=== PATIENT | female | born 1945 | race Two or more races ===

== ENCOUNTER 2017-10-25 06:04 | Day surgery (SDC) | payer MEDICARE, MEDICAID ==
[2017-10-19 14:00] LABS: BASOPHILS % (AUTO) 1.3 % (0.0-2.0); EOSINOPHILS % (AUTO) 2.8 % (0.0-3.0); HEMATOCRIT 40.3 % (37.0-47.0); HEMOGLOBIN 13.3 G/DL (12.0-16.0); LYMPHOCYTES % (AUTO) 42.4 % (20.0-45.0); MEAN CORPUSCULAR VOLUME 95 FL (80-99); MONOCYTES % (AUTO) 8.6 % (1.0-10.0); NEUTROPHILS % (AUTO) 44.9 % (45.0-75.0); PLATELET COUNT 267 K/UL (150-450); RED BLOOD COUNT 4.26 M/UL (4.20-5.40); RED CELL DISTRIBUTION WIDTH 12.4 % (11.6-14.8)
[2017-10-19 14:27] LABS: ANION GAP 11 mmol/L (5-15); BLOOD UREA NITROGEN 16 mg/dL (7-18); CALCIUM 9.1 MG/DL (8.5-10.1); CARBON DIOXIDE 25 MMOL/L (21-32); CHLORIDE 108 MMOL/L (98-107); POTASSIUM 4.1 MMOL/L (3.5-5.1); SODIUM 144 MMOL/L (136-145)
--- NOTE | 2017-10-20 18:01 | Cardiology Report ---
APPROVED REPORT EKG Measurement Heart [id number] ND [id number] Normal sinus rhythm Right superior axis deviation Pulmonary disease pattern Abnormal ECG
--- NOTE | 2017-10-21 14:32 | Pre-Procedure Note/Attestation ---
Pre-Procedure Note/Attestation Complete Prior to Procedure Planned Procedure: left Procedure Narrative: phaco with IOL Indications for Procedure Pre-Operative Diagnosis: cataract Attestation I attest that I discussed the nature of the procedure; its benefits; risks and complications; and alternatives (and the risks and benefits of such alternatives ), prior to the procedure, with the patient (or the patient's legal small business sales representative). I attest that, if there was a reasonable possibility of needing a blood transfusion, the patient (or the patient's legal small business sales representative) was given the [facility] standardized written summary, pursuant to the [place] Blood Safety Act ([place] Health and Safety Code # 1645, as amended). I attest that I re-evaluated the patient just prior to the surgery and that there has been no change in the patient's H&P, except as documented below: JHOANA ARAUZ Oct 21, 2017 14:32
--- NOTE | 2017-10-22 10:32 | Opthalmology H&P ---
Ophthalmology H&P H&P Chief Complaint: decreased vision in left eye HPI Vision Affects Ability to: read, focus/use eyes together, manage personal affairs HPI Narrative blurry vision Exam Visual Acuity: OD: 20/50 OS: 20/200 Tension: OD: 12 OS: 13 Eye Exam: normal OU: external exam, palpebral fissure-width, marginal reflex distance, levator function, corneas, anterior chambers, fundus exam - OD: ns OS: ns; findings: lens Assessment/Plan Diagnosis: (1) Nuclear age-related cataract, left eye Treatment Plan: cataract extraction w/ lens implant Goals of Treatment: improvement of vision, enhance quality of life Attestation Attestation The risks and benefits of the surgery as well as alternative procedures were explained to the patient in detail. JHOANA ARAUZ Oct 22, 2017 10:32
[~2017-10-25] VITALS: Ht 157.5 cm; Wt 64.4 kg
[2017-10-25] VITALS (8 sets, daily range): BP systolic 138–158; BP diastolic 64–77
[~2017-10-25 06:04] MED LIST: GABAPENTIN300 MG ORAL; INDERAL LA60 MG ORAL; JANUMET XR 50-1 EAC1 ORAL; LOSARTAN POTASS25 MG ORAL; SIMVASTATIN20 MG ORAL; TOPIRAMATE100 MG ORAL
[2017-10-25] MEDS ORDERED: Pilocarpine 2% Opth 15ml Soln ONE (07:00)
[2017-10-25] MEDS ORDERED: Pred Forte 1% Opth Susp 1ml ONE (07:00)
[2017-10-25] MEDS ORDERED: Maxitrol Opth Oint 3.5gm ONE (07:00)
[2017-10-25] MEDS ORDERED: Tobramycin Op Soln 0.3% 5ml LEFT EYE SCH (07:00)
[2017-10-25] MEDS ORDERED: Proparacaine 0.5% Opth Soln 15ml LEFT EYE ONE (07:00)
[2017-10-25] MEDS ORDERED: Dexamethasone 4mg/ml vial ONE (07:00)
[2017-10-25] MEDS ORDERED: Akten 3.5% 1ml Btl LEFT EYE ONE (07:00)
[2017-10-25] MEDS ORDERED: Tetracaine 0.5% Opth 4ml Soln LEFT EYE ONE (07:00)
[2017-10-25] MEDS: Phenylephrine 10% Opth Soln 5ml LEFT EYE SCH ×3 (08:06→08:38)
[2017-10-25] MEDS: Tropicamide 1% Opth 15ml Soln LEFT EYE SCH ×3 (08:06→08:38)
[2017-10-25] MEDS: Cyclopentolate 1% Opth Sol 2ml LEFT EYE SCH ×3 (08:07→08:38)
[2017-10-25] MEDS: Diclofenac Sod 0.1% Op Soln LEFT EYE SCH ×3 (08:07→08:38)
--- NOTE | 2017-10-25 08:13 | Anethesia Preoperative Eval ---
Anesthesia Pre-op PMH/ROS General Date of Evaluation: Oct 25, 2017 Time of Evaluation: 08:09 Anesthesiologist: mika ASA Score: ASA 3 Mallampati Score Class I : Soft palate, uvula, fauces, pillars visible Class II: Soft palate, uvula, fauces visible Class III: Soft palate, base of uvula visible Class IV: Only hard plate visible Mallampati Classification: Class II Surgeon: angel Diagnosis: cataract left eye Surgical Procedure: cataract extraction w/ iol implant left eye Anesthesia History: none Social History: smoking - former smoker Family History: no anesthesia problems Allergies: Coded Allergies: No Known Allergies (Unverified , 10/21/17) Medications: see eMAR Past Medical History Cardiovascular: Reports: HTN Pulmonary: Reports: asthma Gastrointestinal/Genitourinary: Reports: other - colitis Neurologic/Psychiatric: Reports: depression/anxiety, other - left facial paralsis Endocrine: Reports: DM PSxH Narrative: héctor/bso Anesthesia Pre-op Phys. Exam Physician Exam Constitutional: NAD Neurologic: other - left facial paralysis Cardiovascular: RRR Respiratory: CTA Gastrointestinal: S/NT/ND Airway Exam Mallampati Score: Class II MO: limited Neck: short TMD: 2fb ROM: limited Teeth: missing Dentures: upper, lower Anesthesia Pre-op A/P Studies Pre-op Studies: EKG - nsr, right superior axis deviation, pulmonary disease pattern Risk Assessment & Plan Assessment: asa3 Plan: general lma Status Change Before Surgery: No Pre-Antibiotics Drug: Dona Luo MD Oct 25, 2017 08:13
[2017-10-25] MEDS ORDERED: fentaNYL 100 mcg/2 mL IV PRN (08:15)
[2017-10-25] MEDS ORDERED: Midazolam 2mg/2ml Inj IVP PRN (08:15)
[2017-10-25] MEDS ORDERED: DiphenhydrAMINE 50mg/ml Inj IVP PRN (08:15)
[2017-10-25] MEDS ORDERED: Labetalol 5mg/ml 20ml vial IV PRN (08:15)
[2017-10-25] MEDS ORDERED: Atropine Inj 1mg/10ml Syr IV PRN (08:15)
[2017-10-25] MEDS ORDERED: EPINEPHrine 1mg/1ml Amp ONE (09:39)
[2017-10-25] MEDS ORDERED: Sodium Hyaluronate 14 mg/ml 0.85ml ONE (09:40)
[2017-10-25] MEDS ORDERED: Povidone-Iodine 5% opth solution ONE (09:40)
[2017-10-25] MEDS ORDERED: BSS 15ml BTL ONE ×2 (09:40→11:05)
[2017-10-25] MEDS ORDERED: BSS 500ml btl ONE (09:40)
[2017-10-25] MEDS ORDERED: Lidocaine 1% MPF 10mg/ml 5ml ONE (10:30)
[2017-10-25] MEDS ORDERED: Propofol 200mg/20ml IV ONE (10:30)
[2017-10-25] MEDS ORDERED: LR 1000ml ONE (10:30)
[2017-10-25] MEDS ORDERED: fentaNYL 100 mcg/2 mL IV ONE ×2 (10:33→10:37)
--- NOTE | 2017-10-25 12:08 | 48 Hour Post Anesthesia Eval ---
Post Anesthesia Evaluation Procedure: cataract extraction w/ iol left eye Date of Evaluation: Oct 25, 2017 Time of Evaluation: 11:29 Blood Pressure Systolic: 146 0: 77 Pulse Rate: 66 Respiratory Rate: 18 Temperature (Fahrenheit): 97.0 O2 Sat by Pulse Oximetry: 100 Airway: patent Nausea: No Vomiting: No Pain Intensity: 0 Hydration Status: adequate Cardiopulmonary Status: stable Mental Status/LOC: patient returned to baseline Post-Anesthesia Complications: none Follow-up care needed: N/A Dona Palumbo MD Oct 25, 2017 12:08
--- NOTE | 2017-10-25 12:08 | Immediate Post-Op Evaluation ---
Immediate Post-Op Evalulation Immediate Post-Op Evalulation Procedure: cataract extraction w/ iol left eye Date of Evaluation: Oct 25, 2017 Time of Evaluation: 11:27 IV Fluids: 300ml lr Blood Products: none Estimated Blood Loss: neglgible Blood Pressure Systolic: 145 Blood Pressure Diastolic: 62 Pulse Rate: 62 Respiratory Rate: 18 O2 Sat by Pulse Oximetry: 100 Temperature (Fahrenheit): 97.0 Pain Score (1-10): 0 Nausea: No Vomiting: No Complications none Patient Status: awake, reacts, patent Hydration Status: adequate Drug: Dona Luo MD Oct 25, 2017 12:08
--- NOTE | 2017-10-27 09:13 | Brief Operative Note ---
Immediate Post Operative Note Operative Note Chief Complaint: blurry vision Pre-op Diagnosis: cataract, OS Procedure: blurry vision Post-op Diagnosis: pseudophakia Post-op Diagnosis: same as pre-op Findings: consistent w/pre-op dx studies Surgeon: Shayy Anesthesiologist: Meir Ricardo Anesthesia: MAC Specimen: none Complications: none Condition: stable Fluids: LR Estimated Blood Loss: none Drains: none Implant(s) used?: Yes JHOANA ARAUZ Oct 27, 2017 09:13
--- NOTE | 2017-10-27 09:15 | Operative Note - PDOC ---
Operative Note Operative Note Date of Operation/Procedure: Oct 25, 2017 Chief Complaint: blurry vision Pre-op Diagnosis: cataract, OS Procedure: blurry vision Post-op Diagnosis: pseudophakia Post-op Diagnosis: same as pre-op Operative Findings: consistent w/pre-op dx studies Surgeon: Shayy Anesthesiologist: Meir Ricardo Anesthesia: MAC Specimen: none Complications: none Condition: stable Fluids: LR Estimated Blood Loss: none Drains: none Implant(s) used?: Yes Indications for Procedure cataract Description of Procedure This patient has been complaining visually significant cataract in the affected eye with the best corrected visual acuity under moderate glare conditions worse. The patient complains of difficulties with glare in performing activities of daily living and wants to manage personal affairs with comfort and accuracy and see well enough to move with safety at home and outdoors. The risks, benefits and alternatives of the procedure were discussed with the patient in the office prior to scheduling surgery. All questions from the patient were answered after the surgical procedure was explained in detail. The risks of the procedure as explained to the patient include, but are not limited to, pain, infection, bleeding, loss of vision, retinal detachment, need for further surgery, loss of lens nucleus, double vision, etc. Alternative procedures were discussed which include, to do nothing or seek a second opinion. Informed consent for this procedure was obtained from the patient. The patient was referred to a primary care physician for a cardiopulmonary clearance prior to surgery, after proper evaluation was done patient was properly scheduled for outpatient surgery. The patient was brought to the operating room where the anesthesiologist established I.V. lines and cardiac monitoring leads. Mild intravenous sedation was administered. The patient was then prepared with a 5% solution of povidone -iodine to the conjunctival fornix and lashes, and a 5% solution of povidone- iodine to the lids and periorbital skin. The patient was then draped in the usual sterile fashion. A lid speculum was then placed in the operative eye. A keratome blade was then used to create a biplanar incision into the anterior chamber. Viscoelastics was then instilled into the anterior chamber. A capsulorrhexis was then fashioned with an utrata forceps. BSS and a cannula were then used to hydrodissect and hydro delineate the lens. Paracentesis incision was made at 3 o'clock with sharp blade. The phacoemulsification unit, after being properly adjusted and tested, was then used to emulsify the nucleus. Residual cortical material was aspirated with the irrigation and aspiration unit. Healon was then instilled into the anterior chamber. The corneal wound was then enlarged to the size of the optic with the jerel keratome blade. The intraocular lens was then inspected for right power and size and thought to be satisfactory. Then the lens was gently placed in the capsular bag. Positioning within the capsular bag was confirmed by direct visualization. Optic centration was accomplished with a Sinskey hook. Viscoelastics was removed from the anterior chamber using the irrigation and aspiration unit. The corneal wound was then tested for leaks and none were found. The lid speculum were then removed. Sponge and needle counts were correct. An eye patch and shield were placed over the operative eye. The patient was taken to the recovery room in stable condition. There were no complications. The patient tolerated the procedure well. The patient was then transferred to the ambulatory surgery unit in stable and satisfactory condition , was given detailed written instructions and asked to follow up in the office the next day. JHOANA ARAUZ Oct 27, 2017 09:15
== END 2017-10-25 12:30 | disposition home or self-care (01) ==
LOC: SDS 06:04
DX: H25.12 Age-related nuclear cataract, left eye (principal); I10 Essential (primary) hypertension; E11.9 Type 2 diabetes mellitus without complications; M19.90 Unspecified osteoarthritis, unspecified site; J45.909 Unspecified asthma, uncomplicated; F32.9 Major depressive disorder, single episode, unspecified; F41.9 Anxiety disorder, unspecified; G51.0 Bell's palsy; Z87.891 Personal history of nicotine dependence; Z87.19 Personal history of other diseases of the digestive system; Z90.710 Acquired absence of both cervix and uterus; Z90.79 Acquired absence of other genital organ(s); Z90.722 Acquired absence of ovaries, bilateral
CPT/HCPCS: 36415; 66984; 80048; 82962; 85025; 85610; 85730; 93005; J0171; J1100; J2704; J3010; J3370; J7120; V2632; 94003; 94150

== ENCOUNTER 2017-12-13 06:32 | Day surgery (SDC) | payer MEDICARE, MEDICAID ==
[2017-12-08 10:28] LABS: BASOPHILS % (AUTO) 1.4 % (0.0-2.0); EOSINOPHILS % (AUTO) 2.8 % (0.0-3.0); HEMATOCRIT 41.3 % (37.0-47.0); HEMOGLOBIN 13.5 G/DL (12.0-16.0); LYMPHOCYTES % (AUTO) 35.3 % (20.0-45.0); MEAN CORPUSCULAR VOLUME 97 FL (80-99); MONOCYTES % (AUTO) 6.8 % (1.0-10.0); NEUTROPHILS % (AUTO) 53.7 % (45.0-75.0); PLATELET COUNT 392 K/UL (150-450); RED BLOOD COUNT 4.24 M/UL (4.20-5.40); RED CELL DISTRIBUTION WIDTH 12.2 % (11.6-14.8); WHITE BLOOD COUNT 6.6 K/UL (4.8-10.8)
[2017-12-08 10:38] LABS: ANION GAP 8 mmol/L (5-15); BLOOD UREA NITROGEN 12 mg/dL (7-18); CALCIUM 9.5 MG/DL (8.5-10.1); CARBON DIOXIDE 26 MMOL/L (21-32); CHLORIDE 106 MMOL/L (98-107); POTASSIUM 4.4 MMOL/L (3.5-5.1); SODIUM 140 MMOL/L (136-145)
--- NOTE | 2017-12-08 12:15 | Diagnostic Imaging Report ---
Indication: Dyspnea Comparison: None 2 views of the chest obtained. Findings: No definite infiltrate or pulmonary vascular congestion identified. The heart is enlarged. The aorta is mildly enlarged consistent with atherosclerotic vascular disease. The bones are osteopenic. Impression: No acute disease
--- NOTE | 2017-12-08 14:36 | Pre-Procedure Note/Attestation ---
Pre-Procedure Note/Attestation Complete Prior to Procedure Planned Procedure: right Procedure Narrative: phacxo with IOL Indications for Procedure Pre-Operative Diagnosis: cataract Attestation I attest that I discussed the nature of the procedure; its benefits; risks and complications; and alternatives (and the risks and benefits of such alternatives ), prior to the procedure, with the patient (or the patient's legal employee relations representative). I attest that, if there was a reasonable possibility of needing a blood transfusion, the patient (or the patient's legal employee relations representative) was given the [facility] standardized written summary, pursuant to the Jesse [place] Blood Safety Act ([place] Health and Safety Code # 1645, as amended). I attest that I re-evaluated the patient just prior to the surgery and that there has been no change in the patient's H&P, except as documented below: JHOANA ARAUZ Dec 08, 2017 14:36
--- NOTE | 2017-12-11 08:18 | Opthalmology H&P ---
Ophthalmology H&P H&P Chief Complaint: decreased vision in right eye HPI Vision Affects Ability to: read, focus/use eyes together, manage personal affairs HPI Narrative BLURRY VISION Exam Visual Acuity: OD; 20/80 OS; 20/40 Tension: OD; 12 OS; 13 Eye Exam: normal OU: external exam, palpebral fissure-width, marginal reflex distance, levator function, corneas, anterior chambers, fundus exam; findings: lens - OD; NS Assessment/Plan Diagnosis: (1) Nuclear age-related cataract, right eye Treatment Plan: cataract extraction w/ lens implant Goals of Treatment: improvement of vision Attestation Attestation The risks and benefits of the surgery as well as alternative procedures were explained to the patient in detail. JHOANA ARAUZ Dec 11, 2017 08:18
[~2017-12-13] VITALS: Ht 162.6 cm; Wt 62.1 kg
[2017-12-13] VITALS (8 sets, daily range): BP systolic 130–171; BP diastolic 65–85
[2017-12-13] MEDS ORDERED: Akten 3.5% 1ml Btl RIGHT EYE ONE (07:00)
[2017-12-13] MEDS ORDERED: Maxitrol Opth Oint 3.5gm ONE (07:00)
[2017-12-13] MEDS ORDERED: Proparacaine 0.5% Opth Soln 15ml RIGHT EYE ONE (07:00)
[2017-12-13] MEDS ORDERED: Diclofenac Sod 0.1% Op Soln RIGHT EYE SCH (07:00)
[2017-12-13] MEDS ORDERED: Pilocarpine 1% Opth 15ml Soln ONE (07:00)
[2017-12-13] MEDS ORDERED: Dexamethasone 4mg/ml vial ONE (07:00)
[2017-12-13] MEDS ORDERED: Pred Forte 1% Opth Susp 1ml ONE (07:00)
[2017-12-13] MEDS ORDERED: Tetracaine 0.5% Opth 4ml Soln RIGHT EYE ONE (07:00)
[2017-12-13] MEDS: Tropicamide 1% Opth 15ml Soln RIGHT EYE SCH ×3 (08:18→08:36)
[2017-12-13] MEDS: Phenylephrine 10% Opth Soln 5ml RIGHT EYE SCH ×3 (08:19→08:38)
[2017-12-13] MEDS: Tobramycin Op Soln 0.3% 5ml RIGHT EYE SCH ×3 (08:20→08:39)
[2017-12-13] MEDS: Cyclopentolate 1% Opth Sol 2ml RIGHT EYE SCH ×3 (08:20→08:36)
[2017-12-13] MEDS ORDERED: METFORMIN HCL500 M1 ORAL (08:43)
[2017-12-13] MEDS ORDERED: ZANTAC150 MG ORAL (08:44)
[2017-12-13] MEDS ORDERED: EPINEPHrine 1mg/1ml Amp ONE (09:56)
[2017-12-13] MEDS ORDERED: Sodium Hyaluronate 14 mg/ml 0.85ml ONE (09:57)
[2017-12-13] MEDS ORDERED: Povidone-Iodine 5% opth solution ONE (09:57)
[2017-12-13] MEDS ORDERED: BSS 15ml BTL ONE (09:57)
[2017-12-13] MEDS ORDERED: BSS 500ml btl ONE (09:57)
[2017-12-13] MEDS ORDERED: Lidocaine 1% MPF 10mg/ml 5ml ONE (10:46)
[2017-12-13] MEDS ORDERED: Propofol 200mg/20ml IV ONE (10:46)
[2017-12-13] MEDS ORDERED: fentaNYL 100 mcg/2 mL IV ONE (10:47)
[2017-12-13] MEDS ORDERED: LR 1000ml ONE (11:00)
[2017-12-13] MEDS ORDERED: ePHEDrine 50mg/ml Inj ONE (11:03)
[2017-12-13] MEDS ORDERED: Glycopyrrolate 0.2mg/ml 1ml Vial ONE (11:03)
[2017-12-13] MEDS ORDERED: fentaNYL 100 mcg/2 mL IV PRN (11:30)
--- NOTE | 2017-12-13 12:43 | Immediate Post-Op Evaluation ---
Immediate Post-Op Evalulation Immediate Post-Op Evalulation Procedure: right eye cataract with IOL Date of Evaluation: Dec 13, 2017 Time of Evaluation: 11:20 IV Fluids: 500 Blood Pressure Systolic: 145 Blood Pressure Diastolic: 77 Pulse Rate: 70 Respiratory Rate: 14 O2 Sat by Pulse Oximetry: 100 Temperature (Fahrenheit): 97.2 Nausea: No Vomiting: No Complications none Patient Status: awake, reacts, patent Hydration Status: adequate Drug: none Marixa Link CRNA Dec 13, 2017 12:43
--- NOTE | 2017-12-13 12:54 | Anethesia Preoperative Eval ---
Anesthesia Pre-op PMH/ROS General Date of Evaluation: Dec 13, 2017 Time of Evaluation: 10:40 Anesthesiologist: heidy ASA Score: ASA 2 Mallampati Score Class I : Soft palate, uvula, fauces, pillars visible Class II: Soft palate, uvula, fauces visible Class III: Soft palate, base of uvula visible Class IV: Only hard plate visible Mallampati Classification: Class II Surgeon: angel Diagnosis: cataract Surgical Procedure: cataract extraction Anesthesia History: none Family History: no anesthesia problems Allergies: Coded Allergies: No Known Allergies (Unverified , 10/21/17) Medications: see eMAR Patient NPO?: Yes NPO Date: Dec 12, 2017 NPO Time: 23:59 Past Medical History Cardiovascular: Denies: HTN, CAD, MO, valve dz, arrhythmia, other Pulmonary: Denies: asthma, COPD, ROMEL, other Gastrointestinal/Genitourinary: Denies: GERD, CRI, ESRD, other Neurologic/Psychiatric: Denies: dementia, CVA, depression/anxiety, TIA, other Endocrine: Denies: DM, hypothyroidism, steroids, other HEENT: Reports: cataract (L) Hematology/Immune: Denies: anemia, DVT, bleeding disorder, other Musculoskeletal/Integumentary: Denies: OA, RA, DJD, DDD, edema, other PSxH Narrative: none Anesthesia Pre-op Phys. Exam Physician Exam Last Vital Signs Date Time Temp Pulse Resp B/P (MAP) Pulse Ox O2 Delivery O2 Flow Rate FiO2 12/13/17 12:20 97.7 65 17 171/79 96 Room Air 97.7 Constitutional: NAD Neurologic: CN 2-12 intact Cardiovascular: RRR Respiratory: CTA Gastrointestinal: S/NT/ND Airway Exam Mallampati Score: Class II ROM: full Dentures: no upper, no lower Anesthesia Pre-op A/P Studies Pre-op Studies: EKG - sr Risk Assessment & Plan Plan: mac Status Change Before Surgery: No Pre-Antibiotics Drug: none Marixa Link CRNA Dec 13, 2017 12:54
--- NOTE | 2017-12-13 12:59 | 48 Hour Post Anesthesia Eval ---
Post Anesthesia Evaluation Procedure: right eye cataract with IOL Date of Evaluation: Dec 13, 2017 Time of Evaluation: 12:59 Blood Pressure Systolic: 145 0: 70 Pulse Rate: 60 Respiratory Rate: 14 O2 Sat by Pulse Oximetry: 98 Airway: patent Nausea: No Vomiting: No Hydration Status: adequate Cardiopulmonary Status: stable Mental Status/LOC: patient returned to baseline Follow-up Care/Observations: na Post-Anesthesia Complications: none Follow-up care needed: N/A Marixa Link CRNA Dec 13, 2017 12:59
--- NOTE | 2017-12-15 15:27 | Brief Operative Note ---
Immediate Post Operative Note Operative Note Chief Complaint: blurry vision Pre-op Diagnosis: cataract, OD Procedure: phaco with IOL Post-op Diagnosis: Pseudophakia Post-op Diagnosis: same as pre-op Findings: consistent w/pre-op dx studies Surgeon: Shayy Anesthesiologist: Nikolay Anesthesia: MAC Specimen: none Complications: none Condition: stable Fluids: LR Estimated Blood Loss: none Drains: none Implant(s) used?: Yes Be Lucas MD Dec 15, 2017 15:27
--- NOTE | 2017-12-15 15:28 | Operative Note - PDOC ---
Operative Note Operative Note Date of Operation/Procedure: Dec 13, 2017 Chief Complaint: blurry vision Pre-op Diagnosis: cataract, OD Procedure: phaco with IOL Post-op Diagnosis: Pseudophakia Post-op Diagnosis: same as pre-op Operative Findings: consistent w/pre-op dx studies Surgeon: Shayy Anesthesiologist: Nikolay Anesthesia: MAC Specimen: none Complications: none Condition: stable Fluids: LR Estimated Blood Loss: none Drains: none Implant(s) used?: Yes Indications for Procedure cataract Description of Procedure This patient has been complaining visually significant cataract in the affected eye with the best corrected visual acuity under moderate glare conditions worse. The patient complains of difficulties with glare in performing activities of daily living and wants to manage personal affairs with comfort and accuracy and see well enough to move with safety at home and outdoors. The risks, benefits and alternatives of the procedure were discussed with the patient in the office prior to scheduling surgery. All questions from the patient were answered after the surgical procedure was explained in detail. The risks of the procedure as explained to the patient include, but are not limited to, pain, infection, bleeding, loss of vision, retinal detachment, need for further surgery, loss of lens nucleus, double vision, etc. Alternative procedures were discussed which include, to do nothing or seek a second opinion. Informed consent for this procedure was obtained from the patient. The patient was referred to a primary care physician for a cardiopulmonary clearance prior to surgery, after proper evaluation was done patient was properly scheduled for outpatient surgery. The patient was brought to the operating room where the anesthesiologist established I.V. lines and cardiac monitoring leads. Mild intravenous sedation was administered. The patient was then prepared with a 5% solution of povidone -iodine to the conjunctival fornix and lashes, and a 5% solution of povidone- iodine to the lids and periorbital skin. The patient was then draped in the usual sterile fashion. A lid speculum was then placed in the operative eye. A keratome blade was then used to create a biplanar incision into the anterior chamber. Viscoelastics was then instilled into the anterior chamber. A capsulorrhexis was then fashioned with an utrata forceps. followed by a BSS and a G 27 cannula were then used to hydrodissect and hydro delineate the lens. Paracentesis incision was made at 3 o'clock with sharp blade. The phacoemulsification unit, after being properly adjusted and tested, was then used to emulsify the nucleus then r esidual cortical material was aspirated with the irrigation and aspiration unit. Healon was then instilled into the anterior chamber. The corneal wound was then enlarged to the size of the optic with the jerel keratome blade. The intraocular lens was then inspected for right power and size and thought to be satisfactory. Then the lens was gently placed in the capsular bag. Positioning within the capsular bag was confirmed by direct visualization. Optic centration was accomplished with a Sinskey hook. Viscoelastics was removed from the anterior chamber using the irrigation and aspiration unit. The corneal wound was then tested for leaks and none were found. The lid speculum were then removed. Sponge and needle counts were correct. An eye patch and shield were placed over the operative eye. The patient was taken to the recovery room in stable condition. There were no complications. The patient tolerated the procedure well. The patient was then transferred to the ambulatory surgery unit in stable and satisfactory condition , was given detailed written instructions and asked to follow up in the office the next day. Be Lucas MD Dec 15, 2017 15:28
== END 2017-12-14 13:00 | disposition home or self-care (01) ==
LOC: SUR 06:32
DX: H25.11 Age-related nuclear cataract, right eye (principal); I10 Essential (primary) hypertension; K21.9 Gastro-esophageal reflux disease without esophagitis; E11.9 Type 2 diabetes mellitus without complications; R00.1 Bradycardia, unspecified
CPT/HCPCS: 36415; 66984; 71046; 80048; 82962; 85025; 85610; 85730; 93005; J0171; J1100; J2405; J2704; J3010; J3370; V2632; 94003; 94150